=== PATIENT | female | born 1945 | race Two or more races ===

== ENCOUNTER 2016-10-21 15:07 | Emergency (ER) | payer MEDICARE ==
[2016-10-21] MEDS ORDERED: KETOROLAC TROMETHAMINE 30 MG/ML 1 ML VIAL ONE (16:56)
[2016-10-21] MEDS ORDERED: LACTATED RINGERS 1,000 ML ONE (16:56)
[2016-10-21 17:03] LABS: ABSOLUTE NEUTROPHIL COUNT 4.3 K/mm3 (1.8-7.7); BASO % 0.3 % (0.2-1.0); EOS # 0.1 (0.0-0.5); EOS % 1.9 % (0.9-2.9); HEMATOCRIT 42.6 % (37.0-47.0); HEMOGLOBIN 14.5 gm/l (12.0-16.0); IMM NEUT% 0.3 % (0-1); LYMPH # 2.1 (1.0-4.8); LYMPH % 30.6 % (15-45); MEAN CELL VOLUME 92.8 fl (81.0-99.0); MEAN CORPUSCULAR HEMOGLOBIN 31.6 pg (27.0-31.0); MEAN PLATELET VOLUME 10.7 fl (7.4-10.4); MONO # 0.3 (0.0-0.8); MONO % 4.1 % (4-12); NEUT % 62.8 % (43-75); PLATELET COUNT 296 K/mm3 (130-400); RED CELL DISTRIBUTION WIDTH 11.7 % (11.5-14.5)
[2016-10-21 17:12] LABS: ALB/GLOB RATIO 1.2 (>1.0); ALBUMIN 4.1 gm/dL (3.5-5.7); CALCIUM 9.6 mg/dL (8.6-10.3)
[2016-10-21 17:49] LABS: URINE BILIRUBIN NEGATIVE (NEGATIVE); URINE BLOOD NEGATIVE (NEGATIVE); URINE GLUCOSE (UA) 3+ (NEGATIVE); URINE LEUKOCYTE ESTERASE NEGATIVE (NEGATIVE); URINE NITRITE NEGATIVE (NEGATIVE); URINE PROTEIN NEGATIVE (NEGATIVE); URINE UROBILINOGEN NORMAL (0-1 mg/dl)
[2016-10-21 17:51] LABS: URINE APPEARANCE CLEAR; URINE COLOR YELLOW
== END 2016-10-21 18:46 | disposition home or self-care (01) ==
LOC: ED 15:07
DX: E11.65 Type 2 diabetes mellitus with hyperglycemia (principal)
CPT/HCPCS: 85025; 80053; 81003; 87804; 99283 ×2; 96374; 96361 ×2; 82962; J1885; J7120

== ENCOUNTER 2017-01-31 10:58 | Emergency (ER) | payer MEDICARE ==
[2017-01-31 12:04] LABS: SPECIFIC GRAVITY 1.015 (1.001-1.030); URINE APPEARANCE CLEAR; URINE BILIRUBIN NEGATIVE (NEGATIVE); URINE BLOOD NEGATIVE (NEGATIVE); URINE COLOR YELLOW; URINE GLUCOSE (UA) 3+ (NEGATIVE); URINE LEUKOCYTE ESTERASE NEGATIVE (NEGATIVE); URINE NITRITE NEGATIVE (NEGATIVE); URINE PROTEIN NEGATIVE (NEGATIVE); URINE UROBILINOGEN NORMAL (0-1 mg/dl)
[2017-01-31] MEDS ORDERED: LACTATED RINGERS 1,000 ML ONE (12:30)
[2017-01-31 13:08] LABS: ALB/GLOB RATIO 1.2 (>1.0); ALBUMIN 4.4 gm/dL (3.5-5.7); CALCIUM 10.1 mg/dL (8.6-10.3)
[2017-01-31 13:14] LABS: ABSOLUTE NEUTROPHIL COUNT 7.4 K/mm3 (1.8-7.7); BASO % 0.1 % (0.2-1.0); EOS # 0.1 (0.0-0.5); EOS % 0.5 % (0.9-2.9); HEMATOCRIT 44.2 % (37.0-47.0); HEMOGLOBIN 14.9 gm/l (12.0-16.0); IMM NEUT% 0.2 % (0-1); LYMPH # 1.4 (1.0-4.8); MEAN CELL VOLUME 93.2 fl (81.0-99.0); MEAN CORPUSCULAR HEMOGLOBIN 31.4 pg (27.0-31.0); MEAN CORPUSCULAR HGB CONC 33.7 g/dl (33.0-37.0); MONO # 0.3 (0.0-0.8); MONO % 3.7 % (4-12); NEUT % 80.5 % (43-75); PLATELET COUNT 328 K/mm3 (130-400); RED CELL DISTRIBUTION WIDTH 11.7 % (11.5-14.5)
== END 2017-01-31 14:09 | disposition home or self-care (01) ==
LOC: ED 10:58
DX: F45.0 Somatization disorder (principal); E11.9 Type 2 diabetes mellitus without complications; Z91.19 Patient's noncompliance with other medical treatment and regimen
CPT/HCPCS: 85025; 80053; 81003; 99283 ×2; J7120